=== PATIENT | female | born 2000 | race Caucasian/White ===

== ENCOUNTER 2024-02-05 12:15 | Emergency (ER) | payer MEDICAID, OTHER ==
[~2024-02-05] VITALS: Ht 167.6 cm; Wt 58.5 kg
[2024-02-05] MEDS: LIDOCAINE 1% HCL (LOCAL ANESTH.) INJ 20ML MDV IJ ONE (15:38)
[2024-02-05] MEDS: TETANUS-DIPTH-ACEL PERTUSSIS 0.5ML SYR Tdap IM ONE (15:40)
[2024-02-05] MEDS: cefTRIAXone SOD 500 MG VL IM ONE (15:40)
[2024-02-05] MEDS ORDERED: NABU-72 PO (15:43)
[2024-02-05] MEDS ORDERED: AUG875T PO (15:43)
[2024-02-05] MEDS ORDERED: MUPI2OIN2 TOP (15:43)
[2024-02-05 15:49] VITALS: BP 121/71; PULSE 96; RESP 18; TEMP 98; O2SAT 100
== END 2024-02-05 15:57 | disposition home or self-care (01) ==
LOC: ER 12:15
DX: S61.251A Open bite of left index finger without damage to nail, initial encounter (principal); S61.257A Open bite of left little finger without damage to nail, initial encounter; L08.9 Local infection of the skin and subcutaneous tissue, unspecified; W55.01XA Bitten by cat, initial encounter; Y93.89 Activity, other specified; Y92.89 Other specified places as the place of occurrence of the external cause; Y99.8 Other external cause status
CPT/HCPCS: 90471; 90715; 96372; 99284; J0696; J2001